=== PATIENT | male | born 1945 | race Caucasian/White ===

== ENCOUNTER → 2017-01-18 | Outpatient (CLI) | payer MEDICARE ==
[2017-01-18 10:46] LABS: Aty Lym Flag Slight; CH 33.1; CHCM 34.3; HCT 42.6 % (39.0-53.0); HDW 2.54; HGB 14.2 gm/dL (13.0-17.5); MCH 32.3 pg (25.0-35.0); MCHC 33.4 g/dL (31.0-37.0); MCV 96.9 fL (80.0-100.0); Mean Platelet Volume 7.6; RDW 12.9 % (11.5-15.5); WBC 3.9 k/uL (3.8-10.6); WBC (Perox) 4.01
[2017-01-18 11:33] LABS: ALT 37 U/L (21-72); AST 26 U/L (17-59); Alkaline Phosphatase 65 U/L (38-126); Anion Gap 10 mmol/L; Blood Urea Nitrogen 14 mg/dL (9-20); Calcium 9.5 mg/dL (8.4-10.2); Carbon Dioxide 27 mmol/L (22-30); Chloride 107 mmol/L (98-107); Cholesterol 240 mg/dL (<200); Glucose 98 mg/dL (74-99); HDL Cholesterol 95 mg/dL (40-60); Non-African American GFR(MDRD) >60 (>60 ml/min/1.73 sqM); Potassium 4.7 mmol/L (3.5-5.1); Sodium 144 mmol/L (137-145); Total Bilirubin 0.7 mg/dL (0.2-1.3); Total Protein 7.3 g/dL (6.3-8.2); Triglycerides 42 mg/dL (<150); Uric Acid 6.2 mg/dL (3.5-8.5)
[2017-01-18 11:53] LABS: Add Differential Manual Differential
[2017-01-18 11:55] LABS: Manual Review Performed; Nucleated Red Blood Cells 0 /100 WBC (0-0); Total Cells Counted 100
[2017-01-18 11:56] LABS: RBC Morphology Normal
[2017-01-18 12:06] LABS: Prostate Specific Antigen <0.06 ng/mL (0.00-4.00)
[2017-01-18 12:14] LABS: Hemoglobin A1C 5.4 % (4.2-6.1)
== END | disposition home or self-care (01) ==
LOC: LABWHC1 09:52
PROVIDERS: ATTEND Internal Medicine Critical Care Medicine
DX: J44.9 Chronic obstructive pulmonary disease, unspecified (principal); I10 Essential (primary) hypertension; M10.9 Gout, unspecified; E78.5 Hyperlipidemia, unspecified; C61 Malignant neoplasm of prostate
CPT/HCPCS: 36415; 80053; 80061; 82306; 83036; 84153; 84439; 84443; 84550; 85025

== ENCOUNTER → 2017-07-25 | Outpatient (CLI) | payer MEDICARE ==
[2017-07-25 12:35] LABS: ALT 45 U/L (21-72); AST 28 U/L (17-59); Alkaline Phosphatase 81 U/L (38-126); Anion Gap 11 mmol/L; Aty Lym Flag Slight; Blood Urea Nitrogen 19 mg/dL (9-20); CH 32.4; Calcium 9.8 mg/dL (8.4-10.2); Carbon Dioxide 23 mmol/L (22-30); Chloride 107 mmol/L (98-107); Cholesterol 245 mg/dL (<200); Glucose 95 mg/dL (74-99); HDL Cholesterol 80 mg/dL (40-60); HDW 2.69; HGB 15.2 gm/dL (13.0-17.5); MCH 32.7 pg (25.0-35.0); MCHC 35.3 g/dL (31.0-37.0); MCV 92.7 fL (80.0-100.0); Mean Platelet Volume 7.3; Non-African American GFR(MDRD) >60 (>60 ml/min/1.73 sqM); Potassium 4.8 mmol/L (3.5-5.1); RBC 4.64 m/uL (4.30-5.90); RDW 12.6 % (11.5-15.5); Sodium 141 mmol/L (137-145); Total Bilirubin 0.8 mg/dL (0.2-1.3); Total Protein 7.6 g/dL (6.3-8.2); WBC 4.6 k/uL (3.8-10.6)
[2017-07-25 13:58] LABS: Add Differential Manual Differential
[2017-07-25 14:02] LABS: Manual Review Performed; Nucleated Red Blood Cells 0 /100 WBC (0-0); Total Cells Counted 100
[2017-07-25 14:08] LABS: Hemoglobin A1C 5.3 % (4.2-6.1)
== END | disposition home or self-care (01) ==
LOC: LABWHC1 11:41
PROVIDERS: ATTEND Internal Medicine Critical Care Medicine
DX: Z00.00 Encounter for general adult medical examination without abnormal findings (principal); C61 Malignant neoplasm of prostate; E78.5 Hyperlipidemia, unspecified; J44.9 Chronic obstructive pulmonary disease, unspecified; G56.02 Carpal tunnel syndrome, left upper limb; M10.9 Gout, unspecified; Z12.5 Encounter for screening for malignant neoplasm of prostate
CPT/HCPCS: 84439; 80061; 80053; 83036; 84443; 85025; 82306; 36415; G0103

== ENCOUNTER → 2018-01-15 | Outpatient (CLI) | payer MEDICARE | END | disposition home or self-care (01) | LOC: RADECHMAIN 11:57 | PROVIDERS: ATTEND Internal Medicine Critical Care Medicine | DX: R00.1 Bradycardia, unspecified (principal) | CPT/HCPCS: 93225; 93226 ==

== ENCOUNTER 2018-03-29 08:50 | Emergency (ER) | payer MEDICARE ==
[2018-03-29 08:56] VITALS: RESP 18
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
--- NOTE | 2018-03-29 09:35 | XR ---
EXAMINATION TYPE: XR KUB DATE OF EXAM: 03/29/2018 COMPARISON: NONE HISTORY: Pain TECHNIQUE: Single supine KUB image of the abdomen is obtained FINDINGS: Small bowel demonstrates no evidence for dilatation or air fluid levels. Gas and fecal material is seen in non-distended colon. No convincing evidence for pneumoperitoneum. No unusual calcifications. The lung bases are clear. The osseous structures are intact. Right hip prosthesis in place. IMPRESSION: 1. Overall nonobstructive bowel gas pattern.
--- NOTE | 2018-03-29 09:42 | XR ---
EXAMINATION TYPE: XR pelvis AP view DATE OF EXAM: 03/29/2018 CLINICAL HISTORY: Pelvic pain after a fall TECHNIQUE: A single AP view of the pelvis is obtained. COMPARISON: None. FINDINGS: There is no acute fracture/dislocation evident in the pelvis. Right hip arthroplasty appea rs in anatomic alignment on this single view. Heterotopic ossification is seen surrounding the right acetabulum. Moderate degenerative changes of the left femoral acetabular joint are seen. Mild degener ative changes of the lumbosacral junction are also present. Overlying bowel is nondilated. The overl julia soft tissue appears unremarkable. IMPRESSION: No acute fracture or dislocation in the pelvis.
--- NOTE | 2018-03-29 09:44 | XR ---
EXAMINATION TYPE: XR lumbosacral spine min 4V DATE OF EXAM: 03/29/2018 CLINICAL HISTORY: Back pain after fall TECHNIQUE: Frontal, lateral, and oblique images of the lumbar spine are obtained. COMPARISON: None FINDINGS: There are 5 lumbar type vertebral bodies identified. The lumbar spine shows satisfactory alignment without evidence of acute fracture or dislocation. Vertebral body heights and disk space he ights are within normal limits. Mild multilevel degenerative changes are seen of the lumbar spine dem onstrated as intervertebral disc space narrowing at L2-L3, small multilevel anterior osteophytes and facet arthropathy from L3 through S1. The oblique images appear within normal limits. Minimal athero sclerosis is seen of the abdominal aorta. The overlying soft tissue appears unremarkable. IMPRESSION: No acute fracture or malalignment is seen in the lumbar spine.
[2018-03-29 10:22] VITALS: BP 117/66; PULSE 70; TEMP 97.9
== END 2018-03-29 10:22 | disposition home or self-care (01) ==
LOC: EC 08:50
DX: S30.0XXA Contusion of lower back and pelvis, initial encounter (principal); K59.00 Constipation, unspecified; R20.2 Paresthesia of skin; E78.5 Hyperlipidemia, unspecified; Z87.891 Personal history of nicotine dependence; Z85.46 Personal history of malignant neoplasm of prostate; Z96.649 Presence of unspecified artificial hip joint; Z98.890 Other specified postprocedural states; Z79.899 Other long term (current) drug therapy; Z88.1 Allergy status to other antibiotic agents; W01.0XXA Fall on same level from slipping, tripping and stumbling without subsequent striking against object, initial encounter; Y93.89 Activity, other specified
CPT/HCPCS: 72110; 72170; 74018; 99283

== ENCOUNTER → 2019-02-13 | Outpatient (CLI) | payer MEDICARE ==
[2019-02-13 13:33] LABS: HCT 42.3 % (39.0-53.0); HGB 14.3 gm/dL (13.0-17.5); MCH 32.1 pg (25.0-35.0); MCHC 33.7 g/dL (31.0-37.0); MCV 95.1 fL (80.0-100.0); Mean Platelet Volume 8.3; Platelet Count 200 k/uL (150-450); RBC 4.45 m/uL (4.30-5.90); RDW 13.4 % (11.5-15.5)
[2019-02-13 14:37] LABS: Eosinophils # (M) 0.12 k/uL (0-0.7); Monocytes # (M) 0.28 k/uL (0-1.0); Neutrophils % (M) 55 %; Nucleated Red Blood Cells 0 /100 WBC (0-0); Total Cells Counted 100
[2019-02-13 16:51] LABS: Albumin 4.7 g/dL (3.80-4.90); Albumin/Globulin Ratio 2.35 (1.60-3.17); Anion Gap 10.2 mmol/L (4.00-12.00); Calcium 9.6 mg/dL (8.7-10.3); Carbon Dioxide 24.8 mmol/L (21.6-31.8); LDL Cholesterol,Calculated 126.8 mg/dL (0.0-131.0); Potassium 4.5 mmol/L (3.5-5.5); Total Protein 6.7 g/dL (6.2-8.2); VLDL Calculation 10.2 mg/dL (5.00-40.00)
[2019-02-13 18:07] LABS: Hemoglobin A1C 5.3 % (4.0-6.0)
== END ==
LOC: LABWHC1 10:04
PROVIDERS: ATTEND Internal Medicine Critical Care Medicine
DX: E55.9 Vitamin D deficiency, unspecified (principal); Z13.1 Encounter for screening for diabetes mellitus; Z00.00 Encounter for general adult medical examination without abnormal findings; J44.9 Chronic obstructive pulmonary disease, unspecified; E78.5 Hyperlipidemia, unspecified; C61 Malignant neoplasm of prostate; M65.311 Trigger thumb, right thumb; M10.9 Gout, unspecified; G56.02 Carpal tunnel syndrome, left upper limb; Z12.5 Encounter for screening for malignant neoplasm of prostate
CPT/HCPCS: 84439; 80061; 80053; 84443; 85025; 82306; 83036; 36415; G0103

== ENCOUNTER → 2020-04-09 | Outpatient (CLI) | payer MEDICARE ==
[2020-04-09 11:29] LABS: Basophils % (A) 1 %; Eosinophils # (A) 0.2 k/uL (0-0.7); Eosinophils % (A) 4 %; HGB 13.4 gm/dL (13.0-17.5); Lymphocytes # (A) 1.3 k/uL (1.0-4.8); Lymphocytes % (A) 31 %; MCH 31.3 pg (25.0-35.0); MCHC 32.6 g/dL (31.0-37.0); MCV 96.1 fL (80.0-100.0); Mean Platelet Volume 7.4; Monocytes # (A) 0.3 k/uL (0-1.0); Monocytes % (A) 7 %; Neutrophils # (A) 2.2 k/uL (1.3-7.7); Neutrophils % (A) 53 %; Platelet Count 237 k/uL (150-450); RBC 4.27 m/uL (4.30-5.90); RDW 12.6 % (11.5-15.5); WBC 4.1 k/uL (3.8-10.6)
[2020-04-09 18:09] LABS: ALT 23 U/L (10-49); AST 23 U/L (14-35); African American GFR (CKD) 100.6 (60.0-200.0); Alkaline Phosphatase 61 U/L (41-126); BUN/Creat Ratio 18.75 Ratio (12.00-20.00); Calcium 9.4 mg/dL (8.7-10.3); Carbon Dioxide 24.7 mmol/L (21.6-31.8); Chloride 107 mmol/L (96-109); Chol/HDL Ratio 2.24; Cholesterol 206 mg/dL (0-200); Globulin 2.1 g/dL (1.6-3.3); Glucose 99 mg/dL (70-110); Non-African American GFR(CKD) 86.8 (60.0-200.0); Potassium 4.5 mmol/L (3.5-5.5); Sodium 139 mmol/L (135-145); Total Bilirubin 0.6 mg/dL (0.3-1.2); Total Protein 6.5 g/dL (6.2-8.2); Triglycerides <50.0 mg/dL (0.0-149.0)
[2020-04-09 19:59] LABS: Hemoglobin A1C 5.1 % (4.0-6.0)
== END | disposition home or self-care (01) ==
LOC: LABWHC1 09:30
PROVIDERS: ATTEND Internal Medicine Critical Care Medicine
DX: Z00.00 Encounter for general adult medical examination without abnormal findings (principal); E55.9 Vitamin D deficiency, unspecified; M10.9 Gout, unspecified; J44.9 Chronic obstructive pulmonary disease, unspecified; E78.5 Hyperlipidemia, unspecified; Z12.5 Encounter for screening for malignant neoplasm of prostate; R79.9 Abnormal finding of blood chemistry, unspecified
CPT/HCPCS: 84439; 80061; 80053; 84443; 85025; 82306; 83036; 36415; G0103

== ENCOUNTER → 2021-06-02 | Outpatient (CLI) | payer MEDICARE ==
[2021-06-02 15:25] LABS: Basophils # (A) 0.02 X 10*3/uL (0.00-0.10); Basophils % (A) 0.5 %; Eosinophils % (A) 2.5 %; HCT 43.3 % (39.6-50.0); HGB 14.6 g/dL (13.0-17.0); Lymphocytes # (A) 1.39 X 10*3/uL (0.90-5.00); Lymphocytes % (A) 34.8 %; MCH 31.9 pg (27.0-32.0); MCHC 33.7 g/dL (32.0-37.0); MCV 94.7 fL (80.0-97.0); Mean Platelet Volume 10.5 fL (9.5-12.2); Monocytes # (A) 0.33 X 10*3/uL (0.20-1.00); Monocytes % (A) 8.3 %; Neutrophils # (A) 2.15 X 10*3/uL (1.80-7.70); Neutrophils % (A) 53.6 %; Platelet Count 204 X 10*3/uL (140-440); RBC 4.57 X 10*6/uL (4.40-5.60); RDW 12.2 % (11.5-14.5)
[2021-06-02 16:47] LABS: Hemoglobin A1C 5.4 % (4.0-6.0)
[2021-06-02 22:58] LABS: ALT 20 U/L (10-49); AST 24 U/L (14-35); African American GFR (CKD) 83.8 (60.0-200.0); Albumin/Globulin Ratio 1.96 (1.60-3.17); Alkaline Phosphatase 73 U/L (41-126); Calcium 9.4 mg/dL (8.7-10.3); Carbon Dioxide 21.9 mmol/L (21.6-31.8); Chloride 108 mmol/L (96-109); Chol/HDL Ratio 2.76; Cholesterol 226 mg/dL (0-200); Globulin 2.4 g/dL (1.6-3.3); Glucose 96 mg/dL (70-110); Non-African American GFR(CKD) 72.3 (60.0-200.0); Potassium 4.9 mmol/L (3.5-5.5); Sodium 141 mmol/L (135-145); Total Bilirubin 0.6 mg/dL (0.2-1.2); Total Protein 7.1 g/dL (6.2-8.2); Triglycerides <50.0 mg/dL (0.0-149.0)
[2021-06-02 23:56] LABS: Prostate Specific Antigen <0.1 ng/mL (0.0-6.5)
== END | disposition home or self-care (01) ==
LOC: LABWHC1 09:31
PROVIDERS: ATTEND Internal Medicine Critical Care Medicine
DX: Z00.00 Encounter for general adult medical examination without abnormal findings (principal); C61 Malignant neoplasm of prostate; E78.5 Hyperlipidemia, unspecified; Z79.899 Other long term (current) drug therapy; E55.9 Vitamin D deficiency, unspecified; R05 Cough
CPT/HCPCS: 36415; 80053; 80061; 82248; 82306; 83036; 84153; 84439; 84443; 85025

== ENCOUNTER → 2023-12-25 | Outpatient (CLI) | payer MEDICARE ==
[2023-12-25 15:09] LABS: Basophils # (A) 0.02 X 10*3/uL (0.00-0.10); Basophils % (A) 0.4 %; Eosinophils # (A) 0.05 X 10*3/uL (0.04-0.35); HCT 42.1 % (39.6-50.0); HGB 14.2 g/dL (13.0-17.0); Lymphocytes # (A) 1.49 X 10*3/uL (0.90-5.00); Lymphocytes % (A) 31.1 %; MCHC 33.7 g/dL (32.0-37.0); MCV 94.8 FL (80.0-97.0); Mean Platelet Volume 10.6 FL (9.5-12.2); Monocytes # (A) 0.39 X 10*3/uL (0.20-1.00); Monocytes % (A) 8.1 %; NRBC Per 100 WBC 0 X 10*3/uL (0.00-0.01); Neutrophils # (A) 2.83 X 10*3/uL (1.80-7.70); Neutrophils % (A) 59.2 %; Platelet Count 214 X 10*3/uL (140-440); RBC 4.44 X 10*6/uL (4.40-5.60); RDW 12.2 % (11.5-14.5); WBC 4.79 X 10*3/uL (4.50-10.00)
[2023-12-25 15:39] LABS: BUN/Creat Ratio 19.44 Ratio (12.00-20.00); Blood Urea Nitrogen 17.5 mg/dL (9.0-27.0); Carbon Dioxide 25.3 mmol/L (21.6-31.8); Chloride 102 mmol/L (96-109); Glucose 97 mg/dL (70-110); Potassium 5.2 mmol/L (3.5-5.5); Sodium 139 mmol/L (135-145)
[2023-12-25 15:40] LABS: Calcium 9.9 mg/dL (8.7-10.3)
== END | disposition home or self-care (01) ==
LOC: LABPAT 11:13
PROVIDERS: ATTEND Orthopaedic Surgery Hand Surgery
DX: Z01.812 Encounter for preprocedural laboratory examination (principal); G56.01 Carpal tunnel syndrome, right upper limb
CPT/HCPCS: 36415; 80048; 85025

== ENCOUNTER 2024-01-10 06:30 | Day surgery (SDC) | payer MEDICARE ==
--- NOTE | 2024-01-09 12:52 | P.HPOR ---
History of Present Illness H&P Date: 01/09/24 Subjective: This is a 77 year old male that presents today for follow up evaluation regarding right hand pain and associated numbness and tingling for the last two years that is progressively worsening. He has numbness in the thumb index middle and ring fingers of the right hand. He also notes pain at the base of the thumb on both sides that is worse with pinching and grasping.He has tried racing with a little relief. Physical Examination: LUE: AIN/PIN/Radial/Ulnar/Median motor intact. Radial/Ulnar/Median SILT. 2+/4 Radial/Ulnar pulses palpated. 5/5 APB, 5/5 FDI. Negative Finkelsteins, positive CMC grind, negative Durkan's compression. RUE: AIN/PIN/Radial/Ulnar/Median motor intact. Radial/Ulnar/Median SILT. 2+/4 Radial/Ulnar pulses palpated. 5/5 APB, 5/5 FDI. Negative Finkelsteins, positive CMC grind, positive Durkan's compression. Imaging: X-Rays of the right hand 3V taken in office today demonstrates advanced arthritis changes at the thumb CMC joint and DRUJ. Slight chronic appearing widening of SL interval. Impression: 1.) B/L thumb CMC arthritis 2.) Right carpal tunnel syndrome Plan: Diagnosis and treatment options were discussed with the patient. He would like to go forward with a right endoscopic versus open carpal tunnel release for his worsening right carpal tunnel syndrome symptoms that has failed to respond to conservative treatment. He would also like to go forward today with bilateral thumb and CMC steroid injections for his arthritis.Written procedural consent was obtained prior to injection. The dorsal skin of the bilateral thumbs was prepped with an alcohol swab. A 1cc mixture of 1% Lidocaine and Depomedrol was injected into left and then right thumb CMC joint without complication. Band-Aid was placed and the patient tolerated the procedure well. Risks and benefits of surgery including bleeding, infection, damage to surrounding tissue, need for further surgery, possible need to convert to open procedure, residual numbness were discussed and the patient wished to go forward with surgery. The patient was agreeable with this plan. -Michael Chu DO Orthopedic Hand/Upper Extremity Surgeon Past Medical History Past Medical History: Cancer, COPD, Hyperlipidemia, Osteoarthritis (OA), Sleep Apnea/CPAP/BIPAP Additional Past Medical History / Comment(s): hx prostate cancer, only has 1 kidney, wears cpap. hx covid History of Any Multi-Drug Resistant Organisms: None Reported Past Surgical History: Joint Replacement, Orthopedic Surgery Additional Past Surgical History / Comment(s): Rt hip replacement, Daniel shoulder surg., had left kidney removed years ago (8yrs old)-wasn't functioning, ORIF ankle, prostate removed, colonoscopy Past Anesthesia/Blood Transfusion Reactions: No Reported Reaction Smoking Status: Former smoker - Past Family History Father Family Medical History: Cancer Additional Family Medical History / Comment(s): prostate Sister(s) Family Medical History: Cancer Additional Family Medical History / Comment(s): bone Medications and Allergies Home Medications Medication Instructions Recorded Confirmed Type Atorvastatin Calcium 20 mg PO DAILY 01/05/24 01/05/24 History Unk Omegaq + Max 1 tab PO DAILY 01/05/24 01/05/24 History Unk Vitamin C 1 tab PO DAILY 01/05/24 01/05/24 History Unk Vitamin D3 1 tab PO DAILY 01/05/24 01/05/24 History Allergies Allergy/AdvReac Type Severity Reaction Status Date / Time tetracycline [Tetracycline] AdvReac Nausea Verified 01/05/24 13:03 Physical Examination Osteopathic Statement: *. No significant issues noted on an osteopathic structural exam other than those noted in the History and Physical/Consult.
[~2024-01-10 06:30] MED LIST: LIDOCAINE 1% (10MG/ML) FOR IV START INTRADERMA PRN; Pre Op ABX Message 1 EACH MISC MISCELLANE ONE
[2024-01-10] MEDS: BUPIVACAINE (PF) 0.5% 30 ML VIAL SQ ONE ×2 (07:27→08:15)
[2024-01-10] MEDS: LIDOCAINE 2% INJ 20 MG/ML SQ ONE ×2 (07:28→08:15)
[2024-01-10 07:30] VITALS: RESP 16; TEMP 98.2
[2024-01-10] MEDS: DEXAMETHASONE SOD PHOSPHATE 4 MG/ML 1 ML VIAL IVP ONE (07:30)
[2024-01-10] MEDS: ONDANSETRON 4 MG/2 ML VIAL IVP PRN (07:30)
[2024-01-10] MEDS: LACTATED RINGERS 1,000 ML IV SCH (07:30)
[2024-01-10] MEDS ORDERED: MIDAZOLAM 2 MG/2 ML VIAL ONE (08:00)
[2024-01-10] MEDS ORDERED: GLYCOPYRROLATE 0.2 MG/ML 2 ML VIAL ONE (08:00)
[2024-01-10] MEDS ORDERED: fentaNYL (PF) 50 MCG/ML 2 ML AMP ONE (08:00)
[2024-01-10] MEDS ORDERED: PROPOFOL 10 MG/ML 20 ML VIAL IV ONE (08:00)
[2024-01-10] MEDS ORDERED: LIDOCAINE 1% INJ 10MG/ML (20 ML MDV) ONE (08:00)
--- NOTE | 2024-01-10 08:30 | P.OP ---
Date of Procedure: 01/10/24 Preoperative Diagnosis: Right carpal tunnel syndrome Postoperative Diagnosis: Right carpal tunnel syndrome Procedure(s) Performed: Right endoscopic carpal tunnel release Anesthesia: MAC Surgeon: Michael Chu Business Continuity Consultant #1: Seamus Bynum Estimated Blood Loss (ml): 0 Pathology: none sent Condition: stable Disposition: PACU Description of Procedure: This is a 78 year old male who presents today for a right endoscopic carpal tunnel release after having failed conservative treatment in the past. Risks and benefits of surgery were discussed with the patient including bleeding, damage to surrounding tissue, infection, need to convert to open procedure, need for further surgery as well as risks of anesthesia including pulmonary embolism and even and the patient wished to proceed with surgical intervention. The patients was seen in the pre-operative area by myself. Consent and H&P were completed and updated. The correct extremity was marked in the pre-operative area by myself and all other questions were answered. Operative Narrative: The patient was brought to the operating room by the department of anesthesia. They remained on the portable stretcher and a rolling hand table was brought to the side of the operative extremity. Pre-operative time out was performed indicating the correct patient, procedure and laterality. All in the room agreed. The patient was then drifted off to sleep by the department of anes thesia. MAC anesthesia was utilized and a 50:50 mixture of 1% Lidocaine and 0.5% bupivacaine was injected into the subcutaneous tissues of the palmar skin, 8ccs total. A nonsterile tourniquet was then applied to the operative extremity and the right upper extremity was then prepped and draped in normal sterile fashion. The operative extremity was the exsanguinated with an esmarch bandage and the tourniquet was inflated to 250mmHg. 15 blade scalpel was utilized to make a transverse incision on the palmar skin just ulnar to the palmaris longus tendon at the level of the distal wrist crease. Ragnell retractor was then placed radially and blunt dissection was performed to reveal the distal forearm fascia. This was lifted with fine Santy pick ups and Littler tenotomy scissors were then used to open the forearm fascia transversely and a double skin hook was then placed. Hamate finder was placed into the carpal tunnel and then sequential sized dilators were inserted followed by the synovial elevator to separate the flexor tenosynovium from the undersurface of the transverse carpal ligament and a washboard texture was felt. The MicroAire endoscopic carpal tunnel release system gun was the then inserted into the carpal tunnel hugging the deep portion of the transverse carpal ligament in line with the base of the ring finger. Transverse fibers of the ligament were directly visualized. Pressure was applied on the palm to reveal the distal extent of the transverse carpal ligament. The blade was then deployed and the distal half of the transverse carpal ligament was released. The scope was then brought distal again and remaining transverse fibers were incised with the blade. The proximal half of the transverse carpal ligament was then divided and again the scope was advanced distal and remaining transverse fibers were incised with the blade. The radial and ulnar leaflets were directly visualized and mobile consistent with complete release. Tenotomy scissors were then util ized to release the remaining distal forearm fascia under direct visualization taking care to preserve the palmar cutaneous branch of the median nerve. Skin closure was performed with interrupted 4-0 Monocryl suture followed by steri strips. Sterile dressing was applied consisting 4x4s, Webril, and an alfredo bandage. Tourniquet was let down and the hand immediately was well perfused. The patient was then woken by the department of anesthesia and transferred to PACU in stable condition. Seamus ALVAREZ was present for the case in its entirety and assisted in major portions of the case and protection of vital neurovascular structures. Michael Chu D.O. Orthopedic Hand/Upper Extremity Surgeon
[2024-01-10 09:17] VITALS: BP 125/64; PULSE 49
== END 2024-01-10 09:31 | disposition home or self-care (01) ==
LOC: OR 06:30
PROVIDERS: ATTEND Orthopaedic Surgery Hand Surgery
DX: G56.01 Carpal tunnel syndrome, right upper limb (principal); J44.9 Chronic obstructive pulmonary disease, unspecified; E78.5 Hyperlipidemia, unspecified; G47.33 Obstructive sleep apnea (adult) (pediatric); Z85.46 Personal history of malignant neoplasm of prostate; Z90.79 Acquired absence of other genital organ(s); Z87.891 Personal history of nicotine dependence; Z80.42 Family history of malignant neoplasm of prostate; Z80.8 Family history of malignant neoplasm of other organs or systems; Z88.1 Allergy status to other antibiotic agents; Z79.899 Other long term (current) drug therapy; Z96.641 Presence of right artificial hip joint
CPT/HCPCS: 29848; J2001 ×2; J2250; J1100; J2405; J3010; J2704; J0665